=== PATIENT | male | born 1995 | race Caucasian/White ===

== ENCOUNTER → 2025-04-15 | Outpatient (REF) | payer BC ==
[2025-04-15 10:44] LABS: SEMEN APPEARANCE OPAQUE (OPAQUE); SEMEN VISCOSITY LIQUID (LIQUID); SEMEN VOLUME 5.5 ml (2.0-5.0)
[2025-04-15 10:45] LABS: SPERM CONCENTRATION 133.3 M/ml (>=15.0); TOTAL PROGRESSIVE SPERM 54.1 M/Ejac.; WBC CONCENTRATION <=1 M/ml (<=1 M/ml)
== END ==
LOC: M LAB REF 09:39
PROVIDERS: ATTEND Student in an Organized Health Care Education/Training Program
DX: Z31.41 Encounter for fertility testing (principal)